=== PATIENT | male | born 1970 | race Caucasian/White ===

== ENCOUNTER → 2020-02-05 | Outpatient (CLI) | payer BC | LOC: COL.RAD 09:55 | DX: N32.9 Bladder disorder, unspecified (principal) | CPT/HCPCS: Q9967 ==

== ENCOUNTER 2020-02-25 08:30 | Day surgery (SDC) | payer BC ==
[~2020-02-25] VITALS: Ht 175.3 cm; Wt 93.1 kg
[2020-02-25] VITALS (11 sets, daily range): BP systolic 107–131; BP diastolic 58–93; PULSE 67–87; TEMP 97.5–98.6
[2020-02-25] MEDS ORDERED: PROTONIX20 MG PO (08:58)
[2020-02-25] MEDS ORDERED: PRISTIQ 50 MG T50 MG PO (08:59)
--- NOTE | 2020-02-25 12:15 | NUR ---
Patient arrived to floor from PACU via bed. Denies pain, stated having some irritation to his penis from the cahteter. Urine is pink and clear. Denies nausea. Oriented patient to room. Explained how CBI works, no questions verbalized. His is at bedside. No other changes at this time. Call light within reach.
--- NOTE | 2020-02-25 18:00 | NUR ---
Patient is doing great this evening. He has been able to eat and drink without nausea. Minimal complaints of pain to his back. Hopper secured to leg, urine yellow and clear. CBI is going at a slow rate. Patient has been drinking plenty of fluids. His is bedside. No other changes at this time. Call light within reach.
--- NOTE | 2020-02-25 21:30 | NUR ---
Pt. laying in bed. Pt. is A&OX3, assessment complete. INT to lt. hand patent. Three-way catheter with CBI, urine is yellow and clear. Pt. denies pain or other needs, call light within reach.
[2020-02-26 03:44] VITALS: BP 106/62; PULSE 63; TEMP 97.4
[2020-02-26 07:43] VITALS: BP 118/73; PULSE 71
--- NOTE | 2020-02-26 08:25 | NUR ---
Patient sitting up in bed, A&Ox4. Denies pain and discomfort. IV CDI. VSS. Hopper CBI to gravity. Urine clear yellow. Patient waiting for mitomysin infusion from Isabel Mosqueda RN. No further needs expressed from the patient. Call light within reach
--- NOTE | 2020-02-26 09:16 | NUR ---
Pt teaching regarding mitomycin was provided by printed material and verbal. Questions were invited and we will postpone that administration for about 45 minutes as pts oral intake has been quite large and we want to facilitate completion of a 2 hour dwell time. was at bedside at the completion of these instructions and again, questions were invited and answered.
--- NOTE | 2020-02-26 09:54 | NUR ---
Initial visit; Patient thanked Fishing Game Warden for looking in on him and offering spiritual care. He stated he has been in touch with his Hands Parter who offers comfort and prayer and appreciates the work both his Hands Parter and the [employer] Chief.
--- NOTE | 2020-02-26 10:07 | NUR ---
Pt bladder emptied as much as possible and cantu catheter clamped. Mitomycin was verified correct with Nilda Estrada/Jess by comparing printed label with medication screen. Pt's bladder instilled with mitomycin 40mg/40ml following chemotherapy precautions and tolerated well. Signage posted regarding precautions at door. Instructed to reposition every 15 minutes to allow the medication to reach all sections of the bladder. Pt and verbalized understanding. Reported to Nilda of start time.
--- NOTE | 2020-02-26 12:15 | NUR ---
Pt has tolerated the mitomycin dwell time well and urine was released the 2 hour time with 450ml of clear yellow/marleen urine flowing into the drainage bag. CBI was started slowly to continue over the next 30 minutes. Chemotherapy precautions were reviewed with patient and earlier and were reviewed with primary nurse Nilda at this time.
[2020-02-26 12:28] VITALS: BP 124/66; PULSE 69; TEMP 97.8
--- NOTE | 2020-02-26 13:44 | NUR ---
Cantu catheter removed, 30 ml removed from the balloon. 250 ml of CBI irrigation instilled into the bladder, cantu clamped. Patient instructed to void in urinal so nurse can assess urine. Patient tolerated well. Pericare provided before and after removal. No further needs expressed from the patient. Call light within reach
--- NOTE | 2020-02-26 15:23 | NUR ---
Patient walked independently with and nursing staff to the ER entrance to vehicle. Patient tolerated well. Discharge paperwork and personal belongings with the patient. No further needs expressed from the patient
== END 2020-02-26 15:25 | disposition home or self-care (01) ==
LOC: SDCO 08:30 → SURG 12:23 → SDCO 02-26 15:25
DX: C67.9 Malignant neoplasm of bladder, unspecified (principal); F41.9 Anxiety disorder, unspecified; K21.9 Gastro-esophageal reflux disease without esophagitis; Z88.4 Allergy status to anesthetic agent; Z87.891 Personal history of nicotine dependence; Z80.49 Family history of malignant neoplasm of other genital organs; M19.90 Unspecified osteoarthritis, unspecified site
CPT/HCPCS: OP; C1769; J0690; J1100; J1170; J1885; J2250; J2405; J2704; J3010; J7120; J9280; Q9967

== ENCOUNTER 2020-12-09 08:00 | Day surgery (SDC) | payer BC ==
[~2020-12-09] VITALS: Ht 175.3 cm; Wt 95.9 kg
[~2020-12-09 08:00] MED LIST: PRISTIQ 50 MG T50 MG PO; PROTONIX 40MG T40 MG PO; PROTONIX20 MG PO
[2020-12-09 08:26] VITALS: BP 125/81; PULSE 66; TEMP 98
[2020-12-09] MEDS ORDERED: MULTIPLE VITAMI1 TA5 PO (08:33)
--- NOTE | 2020-12-09 09:40 | NUR ---
Pt returns to [facility] from [facility], awake and alert and ambuales to recliner without difficulty, denies pain or nausea, provided a muffin and diet pepsi. VSS. Call light in reach, pt will call for ride home.
[2020-12-09 09:55] VITALS: BP 123/91; PULSE 60
--- NOTE | 2020-12-09 09:55 | NUR ---
Pt awake and alert, VSS, denies pain. Call light in reach.
[2020-12-09 10:10] VITALS: BP 113/82; PULSE 54
--- NOTE | 2020-12-09 10:10 | NUR ---
Pt given discharge instructions, IV discontinued to right hand. Dr. Eubanks talks with pt and pt is taken out via wheelchair to private car and left in care of his at 1025.
[2020-12-09 10:43] VITALS: BP 100/88; PULSE 55; TEMP 97
== END 2020-12-09 10:25 | disposition home or self-care (01) ==
LOC: SDCO 08:00
DX: Z12.11 Encounter for screening for malignant neoplasm of colon (principal); D12.8 Benign neoplasm of rectum; D12.2 Benign neoplasm of ascending colon; K21.00 Gastro-esophageal reflux disease with esophagitis, without bleeding; K59.00 Constipation, unspecified; M54.9 Dorsalgia, unspecified; M19.90 Unspecified osteoarthritis, unspecified site; M54.2 Cervicalgia; F41.9 Anxiety disorder, unspecified; Z79.899 Other long term (current) drug therapy; Z87.891 Personal history of nicotine dependence; Z20.822 Contact with and (suspected) exposure to COVID-19; Z85.51 Personal history of malignant neoplasm of bladder
CPT/HCPCS: J2704; J3010; J7120